=== PATIENT | female | born 1965 | race Two or more races ===

== ENCOUNTER 2021-04-30 14:54 | Emergency (ER) | payer OTHER ==
[~2021-04-30] VITALS: Ht 149.9 cm; Wt 49.9 kg
[2021-04-30 15:19] VITALS: BP 166/99
[2021-04-30] MEDS ORDERED: TETANUS-DIPTH-ACEL PERTUSSIS 0.5ML SYR Tdap IM ONE (15:30)
[2021-04-30] MEDS ORDERED: CEPH500C PO (15:43)
[2021-04-30] MEDS ORDERED: NAPR500T31 PO (15:43)
== END 2021-04-30 15:58 | disposition home or self-care (01) ==
LOC: ER 14:54
DX: S51.811A Laceration without foreign body of right forearm, initial encounter (principal); I10 Essential (primary) hypertension; Z90.710 Acquired absence of both cervix and uterus; W25.XXXA Contact with sharp glass, initial encounter; Y93.89 Activity, other specified; Y92.098 Other place in other non-institutional residence as the place of occurrence of the external cause; Y99.8 Other external cause status
CPT/HCPCS: 90471; 90715

== ENCOUNTER 2024-04-27 18:11 | Emergency (ER) | payer SELFPAY ==
[~2024-04-27] VITALS: Ht 134.6 cm; Wt 47.8 kg
[~2024-04-27 18:11] MED LIST: CEPH500C PO; NAPR-746 PO
[2024-04-27] MEDS: NITROGLYCERIN 0.4 MG SL TAB SL ONE (18:48)
--- NOTE | 2024-04-27 19:02 | ED.PDOC ---
HPI Comments HPI: Poor Historian. 53-year-old female with a history of hypotension has not been taking her medicine for at least one month. She went to clinic today to get a medication refill. There she was found with elevated blood pressure systolically in the 200s. She was given clonidine and continued to be greater than 200 systolically. She had patient was sent here for further evaluation and treatment. Patient has some mild headache nonspecific and she feels tingling in her head. Denies any other acute symptoms. Patient does not know her blood pressure medications. Past Medical History: Hypertension, diabetes Past Surgical History: Hysterectomy, REVIEW OF SYSTEMS: CONSTITUTIONAL: Denies acute: fever, diaphoresis, chills, HEAD: Denies acute: photophobia Eyes: Denies acute: Double vision, vision loss, eye pain, eye discharge. EARS: Denies acute: tinnitus, hearing loss, ear discharge, ear pain, THROAT: Denies acute: sore throat, swelling, difficulty swallowing , pain with swallowing, change in voice. NECK: Denies acute: neck pain, neck swelling, stiff neck. HEART: Denies acute : chest pain, palpitations, LUNGS: Denies acute: SOB, wheezing, cough, hemoptysis ABDOMEN: Denies acute: abdominal pain, Nausea, Vomiting, diarrhea, melena , hematemesis, hematochezia SKIN: Denies acute: rash, redness, lesions, itchiness. EXTREMITIES: Denies acute: calf pain, numbness, tingling, weakness, denies pain in extremity. Denies acute: Low back pain. Neuro: Denies acute: focal neurological deficit, motor or sensory focal neurological deficit, tremors, seizure like activity, confusion, dizziness, change in mental status, loss of bowel or bladder function, cauda equina like symptoms. : Denies acute: dysuria, hematuria, flank pain, increase in urinary frequency. PSYCH: Denies acute: hallucination, suicidal ideation, homicidal ideation. FEMALE: Denies acute: abnormal vaginal bleeding, foul odor, unusual discharge. PHYSICAL EXAM: General: Mild acute distress, awake and alert. Head: normocephalic, atraumatic. Neck: supple, trachea is midline, no swelling. Throat: Normal phonation. Eyes:, no erythema, no purulent discharge, no proptosis, no icterus. Heart: regular rate, regular rhythm, no significant murmur appreciated. Lungs: no apparent respiratory distress, Able to speak in full sentences. No wheezing, no rhonchi, no crackles. No stridors Clear to auscultation bilaterally. Abdomen: non tender to palpation, non distended, soft, no guarding, no rebound, + bowel sounds. Neuro: Awake, Alert, oriented to name, self, situation, follows commands GCS=15. Speech is normal. Skin: no petechia, no purpura, no cyanosis, non-pale, not jaundice. Lower extremities: --no - Pitting edema no deformity, no focal swelling, no calf TTP. Makes eye contact. moves all four extremities. Face: no apparent facial droop. Ambulating in the ED independently. Ears: Normal appearing TM b/l, PERRLA, EOM-I CN 2-12 are grossly intact, No nystagmus. No nuchal rigidity, Kernig's sign, Brudzinski's sign, no meningeal signs. ED COURSE: Chief Complaint: High Blood Pressure Time Seen by MD: 18:13 Primary Care Provider: NONE Reviewed Notes: Nurses Notes, Allergies Allergies: Coded Allergies: NO KNOWN ALLERGIES (Unverified , 04/27/24) Home Meds Active Scripts Nitrofurantoin Monohydrate Mac (Macrobid) 100 Mg Cap, 100 MG PO BID for 7 Days, #14 CAP Prov:ZULEYMA PAIGE DO 04/27/24 Naproxen (Naproxen) 500 Mg Tab, 500 MG PO BID, #30 TAB Prov:SIN KAISER 04/30/21 Cephalexin Monohydrate (Cephalexin) 500 Mg Cap, 500 MG PO QID for 7 Days, #28 CAP Prov:SIN KAISER 04/30/21 Information Source: Patient Mode of Arrival: Ambulatory Past Medical History PAST MEDICAL HISTORY: HTN Surgical History: Hysterectomy 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 Was a procedure done?: No CP Differential Dx Differential Diagnosis: N/A Differential Diagnosis: Other (DDX include renal disease, thyroid disease, electrolyte abnormality, increased salt intake, medications non-compliance, undiagnosed HTN, Hypertensive crisis, hypertensive urgency., drug toxicity.) X-Ray, Labs, Meds, VS Vital Signs Date Time Temp Pulse Resp B/P (MAP) Pulse Ox O2 Delivery O2 Flow Rate FiO2 04/27/24 22:00 59 16 133/84 (100) 93 04/27/24 20:00 67 12 96 Room Air* 0 N/A Bi-Pap+ 04/27/24 20:00 98.1 67 12 125/86 (99) 96 98.1 04/27/24 18:50 98.0 80 18 233/108 (149) 97 04/27/24 18:48 233/108 04/27/24 18:48 61 Lab Test 04/27/24 21:18 04/27/24 19:42 04/27/24 18:46 Range/Units Urine Color Yellow Yellow Urine Clarity Turbid H Clear Urine pH 5.5 5.0-9.0 Urine Specific [place] 1.018 1.001-1.035 Urine Protein Trace H Negative Urine Ketones 1+ H Negative Urine Blood Trace H Negative /uL Urine Nitrite Negative Negative Urine Bilirubin Negative Negative Urine Urobilinogen Normal Negative mg/dL Urine Leukocyte Esterase 2+ Negative /uL Urine RBC 6 0 - 4 /hpf Urine Microscopic WBC 19 H 0-5 /HPF Urine Squamous Epithelial Cells Few <5 /hpf Urine Bacteria Few H None Seen /hpf Urine Mucus Few None Seen Urine Glucose Normal Normal mg/dL Urine Opiates Screen Neg NEGATIVE Urine Fentanyl Screen Neg NEGATIVE Urine Barbiturates Screen Neg NEGATIVE Urine Phencyclidine Screen Neg NEGATIVE Urine Amphetamines Screen Neg NEGATIVE Urine Benzodiazepines Screen Neg NEGATIVE Urine Cocaine Screen Neg NEGATIVE Urine Cannabinoids Screen Neg NEGATIVE Troponin I High Sensitivity < 3 L < 3 L </=34 ng/L White Blood Count 8.5 4.4-10.8 10^3/uL Red Blood Count 4.81 4.0-5.20 10^6/uL Hemoglobin 14.7 12.2-16.2 g/dL Hematocrit 41.9 36.0-46.0 % Mean Corpuscular Volume 87.1 80.0-100.0 fL Mean Corpuscular Hemoglobin 30.5 28.0-32.0 pg Mean Corpuscular Hemoglobin Concent 35.0 32.0-36.0 g/dL Red Cell Distribution Width 12.4 11.8-14.3 % Platelet Count 287 140-450 10^3/uL Mean Platelet Volume 7.3 6.9-10.8 fL Neutrophils (%) (Auto) 52.5 37.0-80.0 % Lymphocytes (%) (Auto) 39.0 10.0-50.0 % Monocytes (%) (Auto) 6.8 0.0-12.0 % Eosinophils (%) (Auto) 1.0 0.0-7.0 % Basophils (%) (Auto) 0.7 0.0-2.0 % Neutrophils # (Auto) 4.4 1.6-8.6 10 ^3/uL Lymphocytes # (Auto) 3.3 0.4-5.4 10 ^3/uL Monocytes # (Auto) 0.6 0-1.3 10 ^3/uL Eosinophils # (Auto) 0.1 0-0.8 10 ^3/uL Basophils # (Auto) 0.1 0-0.2 10 ^3/uL Nucleated Red Blood Cells 0.2 % Sodium Level 140 136-145 mmol/L Potassium Level 3.3 L 3.5-5.1 mmol/L Chloride Level 102 98-107 mmol/L Carbon Dioxide Level 28 20-31 mmol/L Anion Gap 10 5-15 Blood Urea Nitrogen 10 9-23 mg/dL Creatinine 0.59 0.550-1.02 mg/dL Glomerular Filtration Rate Calc 104 >90 mL/min BUN/Creatinine Ratio 16.9 10.0-20.0 Serum Glucose 114 H 74-106 mg/dL Lactic Acid Level 1.3 0.4-2.0 mmol/L Calcium Level 10.7 H 8.7-10.4 mg/dL Total Bilirubin 0.9 0.2-1.0 mg/dL Aspartate Amino Transferase (AST) 19 13-40 U/L Alanine Aminotransferase (ALT) 23 7-40 U/L Alkaline Phosphatase 111 46-116 U/L Total Protein 8.2 5.7-8.2 g/dL Albumin 4.9 H 3.2-4.8 g/dL Current Medications Medications (Trade) Dose Ordered Sig/Vitaliy Route Start Time Stop Time Status Last Admin Nitroglycerin (Ntrostat Sublingual) 0.4 mg ONCE ONCE SL 04/27/24 18:45 04/27/24 18:46 DC 04/27/24 18:48 Ceftriaxone Sodium 50 ml @ 100 mls/hr ONCE ONCE IV 04/27/24 22:30 04/27/24 22:59 DC 04/27/24 23:03 [place] [id number] Ph: [phone] DIAGNOSTIC IMAGING Diagnostic Imaging Report : [id number] Signed PATIENT: BENOIT WAGNER ACCT: [id number] UNIT: [id number] : 1965 LOC: ER ROOM / BED: / AGE / SEX: 59 / F ADM STATUS: REG ER SERVICE 35 ORDERING PHYSICIAN: ZULEYMA PAIGE DO PROCEDURE(s): HWOCT - HEAD WITHOUT CONTRAST REASON: HTN ORDER NUMBER(s): [id number], ACCESSION NUMBER(s): [id number] EXAM: CT HEAD WITHOUT CONTRAST INDICATION: HTN TECHNIQUE: CT of the head without intravenous contrast. Radiation Dose Information: CT Dose: CTDI volume is 48.66 mGy. Dose-length product is 780.26 mGy*cm The dose indicators for CT are the volume Computed Tomography (CT) Dose Index (CTDIvol) and the Dose Length Product (DLP), and are measured in units of mGy and mGy-cm, respectively. These indicators are not patient dose, but values gene rated from the CT scanner acquisition factors. The report includes radiation exposure data for exposures received during this examination. COMPARISON: None FINDINGS: There is no evidence of acute intracranial hemorrhage, extra-axial collection, mass effect, midline shift, herniation or hydrocephalus. The ventricles, sulci and cisterns are age appropriate. The zamora-white differentiation is intact. Patchy periventricular and subcortical white matter hypoattenuation is nonspecific but may be related to small vessel ischemic disease. Mucosal thickening of the maxillary sinuses bilaterally. sinuses and mastoid air cells are clear. Mild mucosal thickening of the ethmoid sinuses. The surrounding soft tissues and osseous structures are unremarkable. IMPRESSION: 1. No acute intracranial hemorrhage. 2. No CT findings of territorial ischemia. 3. No displaced skull fractures. HS:Y ATED BY: EEMRY KRISHNA Jr., DO DICTATED DATE/TIME: 04/27/241926 SIGNED BY: EMERY KRISHNA Jr., DO SIGNED DATE/TIME: 04/27/241926 CC: [place] [id number] Ph: [phone] DIAGNOSTIC IMAGING Diagnostic Imaging Report : [id number] Signed PATIENT: BENOIT WAGNER ACCT: [id number] UNIT: [id number] : 1965 LOC: ER ROOM / BED: / AGE / SEX: 59 / F ADM STATUS: REG ER SERVICE 35 ORDERING PHYSICIAN: ZULEYMA PAIGE DO PROCEDURE(s): CXRP - CHEST PORTABLE REASON: HTN ORDER NUMBER(s): [id number], ACCESSION NUMBER(s): [id number] CHEST RADIOGRAPH Indication: HTN Technique: Single frontal view of the chest was obtained Comparison: None FINDINGS: Lines and Tubes: None Lungs: No focal consolidation. Pleura: No effusion. No pneumothorax. Cardiomediastinal contours: Unremarkable Bones: No acute osseous abnormality. IMPRESSION: No acute cardiopulmonary disease. ATED BY: BRIANNA PAGAN DO DICTATED DATE/TIME: 04/27/241921 SIGNED BY: BRIANNA PAGAN DO SIGNED DATE/TIME: 04/27/241921 CC: Time of 1ST Reevaluation: 20:08 Reevaluation 1ST: Improved Patient Education/Counseling: Diagnosis, Treatment Family Education/Counseling: No Family Present Comments Patient presented with the above HPI.--hypertension----workup was initiated. patient was found with the above mentioned diagnosis. the following medications were ordered: please refer to order lists of meds and tests obtained by myself Dr. Paige. Patient ED course and VS have been stabilized. Patient has been reassessed in the ED and remained in a stable condition. Pertinent incidental findings were discussed with the patient and/or family. Patient/family voices understanding and is agreeable with plan. Patient has been observed in the ED adequate length of time to insure improvement/stability. Escalation of care considered: Consideration of escalation to observation or admission Patient was DISCHARGED home in a stable condition. All the reports of any imaging studies that were ordered by myself were reviewed by myself. Departure 1 Departure Time of Disposition: 22:27 Impression: Primary Impression: Hypertensive urgency Additional Impression: UTI (urinary tract infection) Disposition: HOME / SELF CARE / HOMELESS Condition: Stable Additional Instructions: Additional discharge instructions: You MUST follow-up with your primary care/family doctor in 1 to 2 days. If you are unable to see your primary care/family doctor, please return to our emergency room for re-assessment and re-evaluation in 1 to 2 days. Return to the emergency room here in our facility or to the nearest ER [facility] if your symptoms change or worsen. CONSULTATIONS: you MUST Follow-up for consultation as soon as possible with: --cardiology in 1-2 days. Please call for appointment. You MUST call the consultants office yourself to make an appointment. You may need to arrange that through your insurance and/or your primary/family doctor. If you are unable to see the groundwater consultant in 1 to 2 days, you must return to our emergency room (or any other ER of your choice) for re-assessment and re-evaluation. Adequate fluid hydration. Monitor blood pressure at home at least 3 times a day. e-Prescriptions Nitrofurantoin Monohydrate Mac (Macrobid) 100 Mg Cap 100 MG PO BID for 7 Days, #14 CAP Prov: ZULEYMA PAIGE DO 04/27/24 Discharged With: Self Critical Care Note Critical Care Time?: Yes (35 min-critical care time only) Heart Score Heart Score: Heart Score Response (Comments) Value History Slightly Suspicious 0 EKG Normal 0 Age 45-64 1 Risk Factors 1 or 2 risk factors 1 Troponin Normal limit 0 Total 2 ZULEYMA PAIGE DO Apr 27, 2024 19:02
--- NOTE | 2024-04-27 19:24 | DVH ---
CHEST RADIOGRAPH Indication: HTN Technique: Single frontal view of the chest was obtained Comparison: None FINDINGS: Lines and Tubes: None Lungs: No focal consolidation. Pleura: No effusion. No pneumothorax. Cardiomediastinal contours: Unremarkable Bones: No acute osseous abnormality. IMPRESSION: No acute cardiopulmonary disease.
--- NOTE | 2024-04-27 19:30 | DVH ---
EXAM: CT HEAD WITHOUT CONTRAST INDICATION: HTN TECHNIQUE: CT of the head without intravenous contrast. Radiation Dose Information: CT Dose: CTDI volume is 48.66 mGy. Dose-length product is 780.26 mGy*cm The dose indicators for CT are the volume Computed Tomography (CT) Dose Index (CTDIvol) and the Dose Length Product (DLP), and are measured in units of mGy and mGy-cm, respectively. These indicators are not patient dose, but values generated from the CT scanner acquisition factors. The report includes radiation exposure data for exposures received during this examination. COMPARISON: None FINDINGS: There is no evidence of acute intracranial hemorrhage, extra-axial collection, mass effect, midline s hift, herniation or hydrocephalus. The ventricles, sulci and cisterns are age appropriate. The zamora-white differentiation is intact. Patchy periventricular and subcortical white matter hypoattenuation is nonspecific but may be related to small vessel ischemic disease. Mucosal thickening of the maxillary sinuses bilaterally. sinuses and mastoid air cells are clear. Mil d mucosal thickening of the ethmoid sinuses. The surrounding soft tissues and osseous structures are unremarkable. IMPRESSION: 1. No acute intracranial hemorrhage. 2. No CT findings of territorial ischemia. 3. No displaced skull fractures. HS:Y
[2024-04-27 19:35] LABS: Basophils # (auto) 0.1 10 ^3/uL (0-0.2); Basophils % (auto) 0.7 % (0.0-2.0); Eosinophils # (auto) 0.1 10 ^3/uL (0-0.8); Hematocrit 41.9 % (36.0-46.0); Hemoglobin 14.7 g/dL (12.2-16.2); Lymphocytes # (auto) 3.3 10 ^3/uL (0.4-5.4); Mean Corpuscular Hemoglobin 30.5 pg (28.0-32.0); Mean Corpuscular Volume 87.1 fL (80.0-100.0); Monocytes # (auto) 0.6 10 ^3/uL (0-1.3); Monocytes % (auto) 6.8 % (0.0-12.0); Neutrophils # (auto) 4.4 10 ^3/uL (1.6-8.6); Neutrophils % (auto) 52.5 % (37.0-80.0); Nucleated Red Blood Cells % 0.2 %; Platelet Count (auto) 287 10^3/uL (140-450); Red Blood Cells 4.81 10^6/uL (4.0-5.20); Red Cell Distribution Width 12.4 % (11.8-14.3); White Blood Cell 8.5 10^3/uL (4.4-10.8)
[2024-04-27 19:47] LABS: Alanine Aminotransferase 23 U/L (7-40); Alkaline Phosphatase 111 U/L (46-116); Anion Gap 10 (5-15); BUN/Creatinine Ratio 16.9 (10.0-20.0); Blood Urea Nitrogen 10 mg/dL (9-23); Carbon Dioxide 28 mmol/L (20-31); Chloride 102 mmol/L (98-107); Sodium 140 mmol/L (136-145)
[2024-04-27 19:48] LABS: Albumin 4.9 g/dL (3.2-4.8); Aspartate Aminotransferase 19 U/L (13-40); Bilirubin, Total 0.9 mg/dL (0.2-1.0); Calcium 10.7 mg/dL (8.7-10.4); Glucose 114 mg/dL (74-106); Potassium 3.3 mmol/L (3.5-5.1); Total Protein 8.2 g/dL (5.7-8.2)
[2024-04-27 20:00] VITALS: PULSE 67; RESP 12; TEMP 98.1; O2SAT 96
[2024-04-27 21:57] LABS: Urine Bacteria FEW /hpf (None Seen); Urine Blood TRACE /uL (Negative); Urine Clarity Turbid (Clear); Urine Color Yellow (Yellow); Urine Mucus FEW (None Seen); Urine Protein, UAD TRACE (Negative); Urine Specific Gravity 1.018 (1.001-1.035); Urine Squamous Epithelial Cell FEW /hpf (<5); Urine Urobilinogen Normal (Negative); Urine WBC 19 /HPF (0-5); Urine pH 5.5 (5.0-9.0)
[2024-04-27 22:00] VITALS: BP 133/84; PULSE 59; RESP 16; O2SAT 93
[2024-04-27 22:10] LABS: Amphetamine Screen, Urine Neg (NEGATIVE); Barbiturate Scree,Urine Neg (NEGATIVE); Benzodiazephine Screen, Urine Neg (NEGATIVE); Cannabinoid Screen, Urine Neg (NEGATIVE); Cocaine Screen, Urine Neg (NEGATIVE); Opiate Scree,Urine Neg (NEGATIVE); Phencyclidine Screen, Urine Neg (NEGATIVE)
[2024-04-27] MEDS ORDERED: NITR-87 PO (22:28)
[2024-04-27] MEDS: cefTRIAXone 1GM/50ML D5W 50 ML IV ONE (23:03)
--- NOTE | 2024-04-30 03:41 | ECG ---
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
== END 2024-04-27 23:38 | disposition home or self-care (01) ==
LOC: ER 18:11
DX: I16.0 Hypertensive urgency (principal); N39.0 Urinary tract infection, site not specified; I10 Essential (primary) hypertension; E11.9 Type 2 diabetes mellitus without complications; Z76.0 Encounter for issue of repeat prescription; Z90.710 Acquired absence of both cervix and uterus; Z79.899 Other long term (current) drug therapy
CPT/HCPCS: 36415; 70450; 71045; 80053; 80307; 81001; 83605; 84484; 85025; 93005; 96365; 99285; J0696